=== PATIENT | female | born 1965 | race Caucasian/White ===

== ENCOUNTER 2018-12-10 13:31 | Emergency (ER) | payer OTHER ==
[2018-12-10] MEDS: METOCLOPRAMIDE 10 MG INJ IV (16:37)
[2018-12-10] MEDS: SOD CHLORIDE 0.9% 1,000 ML IV (16:37)
[2018-12-10] MEDS: DIPHENHYDRAMINE 50 MG INJ IV (16:38)
[2018-12-10] MEDS: MECLIZINE 12.5 MG TAB PO (16:45)
== END 2018-12-10 19:12 | disposition home or self-care (01) ==
LOC: E/R 13:31
DX: R42 Dizziness and giddiness (principal); R51 Headache; R11.2 Nausea with vomiting, unspecified; R40.2142 Coma scale, eyes open, spontaneous, at arrival to emergency department; R40.2252 Coma scale, best verbal response, oriented, at arrival to emergency department; R40.2362 Coma scale, best motor response, obeys commands, at arrival to emergency department
CPT/HCPCS: 36415; 70450; 80048; 81001; 84484; 85025; 93005; 96374; 96375; 99285-25